=== PATIENT | male | born 1950 | race African-American/Black ===

== ENCOUNTER 2017-03-04 23:42 | Observation (INO) | payer SELFPAY ==
[2017-03-05 01:18] LABS: Troponin I Less than 0.010 ng/mL (< 0.028)
[2017-03-05 02:31] LABS: Troponin I Less than 0.010 ng/mL (< 0.028)
[2017-03-05] MEDS ORDERED: Sodium Chloride 0.9% 1,000 ML IV SCH ×2 (02:43→06:30)
[2017-03-05 02:48] VITALS: BMI 23.1
[2017-03-05 05:23] LABS: Troponin I Less than 0.010 ng/mL (< 0.028)
--- NOTE | 2017-03-05 05:36 | PDOC.EVN ---
Event Note - Event Note Event Note: [id number] H&P Dictated 1. Fatigue + Myalgias 2. LEXX Over CKD stage 3 3. H/O GERD 4. H/O BPH Plan: see orders
--- NOTE | 2017-03-05 06:20 | HP ---
CHIEF COMPLAINT: Diffuse body aches, fatigue. HISTORY OF PRESENT ILLNESS: The patient is a 66-year-old old male with past medical history of BPH, chronic kidney disease stage 3, kidney cancer and gastroesophageal reflux disease, came to the ER b ecause of diffuse bodyaches and fatigue. The patient said he woke up yesterday morning and started feeling tired and bodyaches. Denies any headache, denies any chest pain, denies any trouble breathi ng, denies any nausea, denies any vomiting, denies any dizziness, denies any lightheadedness. Denie s any cough, denies sputum production, denies any fever, denies any chills, myalgias persisted, extr roscoe fatigue so the patient was seen in the outside ER. From the outside ER the patient was transfer red here. PAST MEDICAL HISTORY: BHP, CKD stage 3, kidney cancer and gastroesophageal reflux disease. PAST SURGICAL HISTORY: Right nephrectomy. SOCIAL HISTORY: Denies smoking, denies alcohol, denies any drugs. MEDICATIONS: Reviewed. FAMILY HISTORY: Denies any heart problems. REVIEW OF SYSTEMS: CONSTITUTIONAL: Positive for headache, positive for myalgias. EYES: Denies vision problems. Denies hearing loss. Denies any neck pain. CARDIOVASCULAR: Denies any chest pain, denies any palpations. RESPIRATORY: Denies any cough, denies production. GASTROINTESTINAL: Denies nausea, denies vomiting. MUSCULOSKELETAL: Positive for diffuse joint pain. INTEGUMENTARY: Denies any rash. CRANIAL NERVE SYSTEM: Denies syncope, denies lightheadedness. PSYCHIATRIC: Denies anxiety. All other review of systems are reviewed and are negative. PHYSICAL EXAMINATION: CONSTITUTIONAL/VITAL SIGNS: At the time of H\T\P performed, blood pressure 116/73, heart rate 80, r espiratory rate 22, pulse ox 99%. GENERAL: Patient appears comfortable. HEENT: Pupils equal, round, and reactive. ENT patent. Nose normal. Ears normal. Teeth intact. Tongue is moist. NECK: Supple, no JVD. CARDIOVASCULAR SYSTEM: S1 and S2 present and regular rate and rhythm. No murmurs, no rubs, no arreaga ps. RESPIRATORY SYSTEM: No wheezing, no rhonchi. Breath sounds bilaterally. ABDOMEN: Soft, nontender, no guarding, no organomegaly, no masses felt. MUSCULOSKELETAL: No edema. INTEGUMENTARY: No rashes seen. PSYCHIATRIC: Mood is appropriate at this time. LABORATORY DATA: At the time of H\T\P performed; troponins negative x3. BMP showed sodium 136, pot assium 4.4, chloride 105, CO2 of 21, BUN 37, creatinine 1.3, baseline creatinine 1.7, calcium 9.6. AST 40, ALT 27. UA, trace blood seen. Nitrite negative. White count of 9.6, hemoglobin 13.1, plat elet count is 232. ASSESSMENT AND PLAN: The patient is 66 years old male. 1. Fatigue plus myalgias. Plan to check flu test. Plan to monitor the patient closely. 2. Abnormal EKG. EKG showed Q-waves in lead 3 and AVF, will check 2D echo, cardiac enzymes are neg ative. We will check 2D echo and if the echo shows wall motion abnormality then we will consult Car diology. 3. History of benign prostatic hypertrophy. Continue home medication. 4. Acute kidney injury with chronic kidney disease stage 3 to 4. Creatinine is slightly elevated. Continue IV hydration and repeat basic metabolic panel in a.m. 5. Gastroesophageal reflux disease. Continue proton-pump inhibitor. The case was discussed in detail with the patient.
[2017-03-05] MEDS ORDERED: Acetaminophen 325 MG TAB PO PRN (06:21)
[2017-03-05] MEDS ORDERED: Ondansetron HCl/PF 4 MG/2 ML Vial IVP PRN (06:21)
[2017-03-05] MEDS ORDERED: Labetalol HCl 100 MG TAB PO SCH (09:00)
[2017-03-05] MEDS: Heparin 5,000 UNITS/ML VIAL SC SCH ×2 (09:09→16:11)
[2017-03-05 09:23] LABS: Bilirubin Negative (Negative); Blood, Urine Negative (Negative); Glucose, Urine (Dipstick) Negative (Negative); Ketone, Urine Negative (Negative); Nitrite Negative (Negative); Protein, Urine (Dipstick) Negative (Neg-Trace); Urobilinogen 0.2 mg/dL (0.2-1.0)
[2017-03-05 09:27] LABS: Bacteria/HPF None Seen HPF (None Seen); Hyaline Casts/LPF 0-3 HYALINE CAST LPF (0-3 Hyaline)
[2017-03-05 10:38] LABS: RBC/HPF 0-3 HPF (0-3)
[2017-03-05] MEDS ORDERED: Regadenoson 0.4 MG/5 ML SYRINGE ONE (13:22)
[2017-03-05 15:24] VITALS: BP 177/83; TEMP 98.3
--- NOTE | 2017-03-05 16:57 | NM ---
MYOCARDIAL PERFUSION STUDY 03/05/17 HISTORY: Chest pain. RADIOPHARMACEUTICAL: 27.5 millicuries of technetium 99m Sestamibi, IV at stress and 9 millicuries technetium 99m Sestamib i, IV at rest. MEDICATIONS: 0.4 mg of Lexiscan, IV. FINDINGS: There is no significant reversible defect seen between the stress and resting acquisitions. Quantita tive analysis also shows no significant reversible defect. Gaited images show normal ventricular wal l motion and wall thickening. The calculated left ventricular ejection fraction is 66%. IMPRESSION: 1. Normal myocardial perfusion scan without evidence of a reversible defect seen to suggest isc hemia. 2. Normal LVEF of 66%. POS: [facility]
--- NOTE | 2017-03-05 20:22 | DIS ---
DATE OF ADMISSION: March 05, 2017 DATE OF DISCHARGE: March 05, 2017 DISCHARGE DIAGNOSES: 1. Generalized weakness and body aches. 2. Acute kidney injury on chronic kidney disease, stage 3. 3. History of renal cell carcinoma. 4. Gastroesophageal reflux disease. 5. Hypertension. CONSULTATIONS: None. PERTINENT LAB AND X-RAY FINDINGS: Creatinine 1.93 with estimated GFR of 43, calcium 9.6, AST 40, AL T of 27, alkaline phosphatase 109, total bilirubin 0.7. Troponin I negative x3. Albumin 3.9, total cholesterol 133, triglycerides 53, HDL 41, LDL 81. CBC showed a white blood cell count of 9.6, hem oglobin 13, hematocrit 42, platelet count 232 with 67% neutrophils. Portable chest x-ray dated 02/14, showed no acute cardiopulmonary process. Cardiolite stress test dated 03/05/2017, showed no evidence for reversible or fixed ischemia with calculated ejection fraction of 66%. HOSPITAL COURSE: The patient was observed on the telemetry unit after initially presenting with gen eral fatigue, body aches, and acute kidney injury in the context of known chronic kidney disease, st age 5. The patient was initiated on low volume IV fluid hydration as well as undergoing metabolic s creening showing serial troponins negative x3. The patient's symptomatology and presentation were s omewhat unclear, at which point the patient underwent cardiac stress testing to rule out underlying ischemia as the culprit for presentation. The patient proceeded to Cardiolite stress testing showin g no evidence of reversible or fixed ischemia with calculated ejection fraction of 66%. No specific etiology identified other than possible viral type insult. Telemetry monitoring showed a sinus mec hanism without evidence of acute arrhythmia or dysrhythmia. The patient overall remained clinically stable throughout the hospital course and ready for discharge on 03/05/2017. DISCHARGE MEDICATIONS: 1. Labetalol 100 mg one tab p.o. daily. 2. Omeprazole 40 mg one tab p.o. daily. FOLLOWUP: The patient will follow up with his primary care provider, Dr. Compa Villalpando within 7 day s of discharge. CONDITION ON DISCHARGE: Stable. ACTIVITY: Ad-raj. DIET: Heart healthy. CODE STATUS: Full. DISPOSITION: Home on 03/05/2017.
== END 2017-03-05 17:44 | disposition home or self-care (01) ==
LOC: ERS 23:42 → 2SW 03-05 01:30
PROVIDERS: ADMIT Internal Medicine; ATTEND Internal Medicine
DX: R53.1 Weakness (principal); R53.83 Other fatigue; I12.9 Hypertensive chronic kidney disease with stage 1 through stage 4 chronic kidney disease, or unspecified chronic kidney disease; N18.3 Chronic kidney disease, stage 3 (moderate); N17.9 Acute kidney failure, unspecified; K21.9 Gastro-esophageal reflux disease without esophagitis; Z79.899 Other long term (current) drug therapy; Z90.5 Acquired absence of kidney; Z85.528 Personal history of other malignant neoplasm of kidney; Z87.891 Personal history of nicotine dependence
CPT/HCPCS: 36415; 78452; 80061; 81001; 82553; 84484; 93005; 93017; 93306; 96360; 96361; A9500; G0378; J1644; J2785

== ENCOUNTER 2017-04-10 14:40 | Emergency (ER) | payer SELFPAY ==
[2017-04-10 15:42] LABS: #Eosinphils 0.2 thou/uL (0.0-0.7); #Monocytes 0.9 thou/uL (0.11-0.59); #Neutrophils 5.6 thou/uL (1.40-6.50); %Basophils 0.4 % (0.0-1.0); %Eosinophils 1.8 % (0.0-10.0); %Lymphocytes 22.9 % (21.0-51.0); %Monocytes 10.4 % (0.0-10.0); Hematocrit 41.3 % (42.0-52.0); Mean Platelet Volume 8.2 fL (7.4-10.4); Red Blood Cell (RBC) Count 4.36 mill/uL (4.70-6.10); White Blood Cell (WBC) Count 8.6 thou/uL (4.8-10.8)
[2017-04-10 15:47] LABS: Prothrombin Time 14.6 SEC (12.0-14.7)
[2017-04-10 15:54] LABS: Bilirubin Negative (Negative); Blood, Urine Negative (Negative); Glucose, Urine (Dipstick) Negative (Negative); Ketone, Urine Negative (Negative); Nitrite Negative (Negative); Protein, Urine (Dipstick) Negative (Neg-Trace)
[2017-04-10 16:05] LABS: ALT (SGPT) 31 U/L (8-55); AST (SGOT) 39 U/L (5-34); Alkaline Phosphatase 122 U/L (40-150); Anion Gap 13 mmol/L (10-20); BUN (Urea Nitrogen) 26 mg/dL (8.4-25.7); Bilirubin, Total 0.4 mg/dL (0.2-1.2); Calc. Creatinine Clearance 0 mL/min (70-130); Calcium 9.7 mg/dL (7.8-10.44); Carbon Dioxide 23 mmol/L (23-31); Chloride 112 mmol/L (98-107); Estimated GFR-MDRD 50; Globulin 5.2 g/dL (2.4-3.5); Protein, Total 8.7 g/dL (5.8-8.1)
[2017-04-10 16:09] LABS: Troponin I 0.012 ng/mL (< 0.028)
--- NOTE | 2017-04-10 16:12 | RAD ---
PA AND LATERAL CHEST X-RAY 04/10/17 HISTORY: Decreased appetite and feeling bad for one month. History of renal mass with right nephrectomy one ye ar ago. COMPARISON: 03/04/17. FINDINGS: The cardiac silhouette and pulmonary vasculature are within normal limits. Linear scarring is again s een in the anterior aspect of the left upper lobe. There is a faint nodular density seen at the left lung base. This could be related to superimposition of structures and was not present on the prior st udy. The lungs were otherwise clear. There is a nodular density seen within the right hilar region. T his could be related to mass or lymphadenopathy. Degenerative changes are seen in the spine. There is slight wedge shaped deformities of thoracic vertebral bodies which is unchanged from the prior exam and some of this may be physiologic and related to degenerative change or secondary to remote injury. Surgical clips overlie the upper abdomen. IMPRESSION: 1. Nodular density right hilar region. Further evaluation with CT scan is recommended. 2. Faint subcentimeter nodular density at the left lung base. This is probably related to superi mposition of structures, but this can also be evaluated on CT exam. 3. Scarring in the left upper lobe. POS: [facility]
== END 2017-04-10 16:35 | disposition home or self-care (01) ==
LOC: ERS 14:40
DX: R63.0 Anorexia (principal); K21.9 Gastro-esophageal reflux disease without esophagitis; I10 Essential (primary) hypertension; E78.5 Hyperlipidemia, unspecified
CPT/HCPCS: 36415; 71020; 80053; 81003; 82553; 84484; 85025; 85610; 85730; 93005; 93010

== ENCOUNTER 2017-04-19 00:49 | Inpatient (IN) | payer SELFPAY ==
[2017-04-19] MEDS ORDERED: Ondansetron HCl/PF 4 MG/2 ML Vial IVP PRN (03:39)
[2017-04-19] MEDS ORDERED: Ondansetron ODT 4 MG TAB SL PRN (03:39)
[2017-04-19] MEDS ORDERED: Sodium Chloride 0.9% 1,000 ML IV SCH (03:39)
[2017-04-19 05:24] VITALS: BMI 18.3
--- NOTE | 2017-04-19 10:39 | CON ---
DATE OF CONSULTATION: 04/19/2017 HISTORY OF PRESENT ILLNESS: The patient is a 66-year-old -Citizen Of [place] male with a history of renal carcinoma, status post right radical nephrectomy in 2016 at [facility], who presented to the emergency department in [facility] for progressive neurologic decline as well as increasing right leg pain. He was evaluated with a CT of the head, which was notable for multiple intracranial lesions consistent with metastatic disease. There was a lesion at the third ventricle with associated hydrocephalus. The patient was also found to have multiple osteolytic metastatic lesions to the right pubic body, right inferior pubic rami, which appeared to be causing nondisplaced right pubic body fracture. The patient was admitted to the medical service for further evaluation of these issues and Neurosurgical service was consulted for new intracranial lesions. PAST MEDICAL HISTORY: Notable for renal cell carcinoma, status post right nephrectomy in 06/2015; IVC thrombosis. PAST SURGICAL HISTORY: Right nephrectomy in 2015. SOCIAL HISTORY: The patient does not smoke, drink, or use any drugs. ALLERGIES: He has no known drug allergies. PHYSICAL EXAMINATION: CONSTITUTIONAL: The patient is somnolent. Does arouse with stimulation. HEENT: Normocephalic, atraumatic. Eyes PERRLA. Extraocular movements are intact. Sclerae are white. ENT: Oral mucosa is pink, moist, and intact. He has a normal voice. NECK: Nontender to palpation. Free active range of motion. No meningismus or nuchal rigidity. RESPIRATORY: The patient is breathing comfortably. No evidence of respiratory distress. CARDIOVASCULAR: Regular rate and rhythm. BACK: Nontender to palpation. MUSCULOSKELETAL: Good muscle tone to bilateral upper or lower extremities. Peripheral pulses are intact. NEUROLOGIC: He is drowsy. He awakes to stimulation. He will tell me his name , but is otherwise disoriented to place, time, or situation. He is moving all fours. He is following some commands. ASSESSMENT: Renal cell carcinoma with multiple metastatic lesions, hydrocephalus. PLAN: The patient is currently admitted to the medicine service for further evaluation of his renal cell carcinoma as well as metastatic disease to the pelvis and the brain. We will recommend Oncology involvement for further assistance in management. Depending on prognosis, the patient may be more likely to consider hospice management, although this conversation has not been had with the patient or the family. If aggressive management was entertained we may consider BACK TENDER CYLINDER shunt for hydrocephalus. We will continue to follow along and assist in any way that is needed. We will hold off on any acute neurosurgical intervention at this time. Please reach out to the Neurosurgical service for additional questions or concerns. VADIM
[2017-04-19] MEDS ORDERED: HYDROcodone/Acetaminophen 10/325 mg Tablet PO PRN (11:44)
[2017-04-19] MEDS ORDERED: HYDROcodone/Acetaminophen 5/325 mg Tablet PO PRN (11:44)
[2017-04-19] MEDS ORDERED: Ondansetron ODT 4 MG TAB PO PRN (11:44)
[2017-04-19] MEDS ORDERED: hydrALAZINE 20 MG/ML VIAL SLOW IVP PRN (11:44)
[2017-04-19] MEDS: Dexamethasone 4 mg/ml Vial SLOW IVP SCH ×2 (12:20→18:56)
[2017-04-19] MEDS ORDERED: Lorazepam 2 MG/ML VIAL SLOW IVP SCH (13:30)
--- NOTE | 2017-04-19 13:41 | RAD ---
AP VIEW OF THE PELVIS: INDICATION: Pubic rami fracture. COMPARISON: Prior radiographs of the right hip dated 04/18/17 from [facility]. FINDINGS: There is prominent osteolytic lesion again seen involving the right inferior pubic ramus and right in ferior pubic body. There is a vertically oriented fracture seen on the comparison radiograph involvi ng the right pubic body that is not as well detailed on the current exam. Mild degenerative change i s seen in both hips. IMPRESSION: Osteolytic metastatic lesion to the right pubic body and right inferior pubic ramus with a suspected nondisplaced right pubic body pathologic fracture. POS: [facility]
--- NOTE | 2017-04-19 16:58 | CON ---
DATE OF CONSULTATION: 04/19/2017 REQUESTING PHYSICIAN: Dr. Polo. BRIEF HISTORY OF PRESENT ILLNESS: Patient is a 66-year-old -[place] gentleman who was examin ed in his hospital bed with his at bedside. The patient has a history of renal cell carcinoma a nd is status post radical nephrectomy in 2005 at [facility]. The patient was in his usual state o f health up until this recent admission. He presented to the emergency room in [place] for increasing right groin pain. He was evaluated with CT scan of head as well as x-rays of the hip and these are remarkable for intracranial lesions consistent with metastatic disease as well as osteolytic metastat ic lesions of the right pubis and right inferior pubic rami. Given these pelvis findings, orthopedic consultation requested. PAST MEDICAL HISTORY: Remarkable for renal cell carcinoma. PAST SURGICAL HISTORY: Nephrectomy. SOCIAL HISTORY: He is a nonsmoker, does not drink alcohol. Denies recreational drug use. ALLERGIES: None known. REVIEW OF SYSTEMS: No recent fevers, chills or sweats. Denies chest pain or shortness of breath. N o numbness or tingling in lower extremity. PHYSICAL EXAMINATION: VITAL SIGNS: Temperature 97.5, heart rate of 68, respiratory rate is 16, and blood pressure of 145/8 6. HEENT: Atraumatic, normocephalic. HEART: Regular rate and rhythm. LUNGS: Clear to auscultation. He is in no acute distress. PELVIS: Pelvis is stable to compression with no significant pain in the groin. He does have pain to direct palpation on the right side of the rami. EXTREMITIES: Leg lengths are equal. He has minimal discomfort with log rolling of the thigh and he has an atraumatic knee, ankle and foot. X-RAYS: AP pelvis x-ray obtained at [place] as well as hip films from [place] are remarkable for a large lytic lesion at the inferior rami and just adjacent to the body of the pubis. He was also fou nd to have a lesion within the pubic body and what appears to be a fracture at least a vertical line seen superiorly at the pubis, but without displacement. The acetabulum does not appear to be effecti ve in both from femoral neck and heads appear to be disease free. ASSESSMENT: A 66-year-old gentleman with a history of renal cell carcinoma, now with apparent metast atic disease both intracranially as well as to the right inferior rami and right pubic body. Patient does have a stable pelvis. PLAN: At this time, he can be weightbearing as tolerated. I would recommend a walker as needed for pain. If there was concern regarding the tumor in the pelvis, consideration for radiation treatment would be reasonable; however, there is no surgical lesion at this time. I had a thorough discussion with the patient's regarding this recommendation.
--- NOTE | 2017-04-19 20:56 | CON ---
DATE OF CONSULTATION: 04/19/2017 REASON FOR CONSULTATION: Mr. Denson is a 66-year-old gentleman who has been diagnosed with brain metas tasis from renal cell carcinoma. I was asked to see him to discuss his treatment options. HISTORY OF PRESENT ILLNESS: Mr. Denson is unable to give a history. This history was all gathered by talking with his . He was apparently diagnosed with a right renal cell carcinoma in 2015. At th at time, he underwent a right radical nephrectomy in [place]. Since then, he has been followed and ap parently has been without evidence of disease. However, over the past week, he has had a significant decline in performance status as well as mental status changes. By Wednesday, he was really unable to get out of the bed and began sleeping most of the time. He was taken to the emergency room where he underwent a CT scan of the head. This showed numerous hypodense lesions consistent with brain metast asis. The largest appeared to be obstructing the third ventricle and there was some hydrocephalus. Apparently, he has not been having headaches. However, he has been having some pain in his stomach a nd on his left side. He has not been eating and drinking very much lately and has had at least a 60- pound weight loss. Again, over the past several days, he has had progressive somnolence. He was adm itted to the hospital yesterday and has begun on dexamethasone. At this point, there has been very l ittle improvement. PAST MEDICAL HISTORY: 1. Renal cell carcinoma, status post right radical nephrectomy in 06/2015 as mentioned above. 2. Hypertension prior to a surgery, although he has not required medications recently. 3. Chronic renal insufficiency after his nephrectomy. 4. He reports no other medical problems. MEDICATIONS: Decadron and Pepcid. ALLERGIES: No known medical allergies. SOCIAL HISTORY: He does live in [place], [place] with his . He has not smoked cigarettes since . He does drink an occasional beer. He is retired. FAMILY HISTORY: His mother and father both had diabetes. He has had other family members with diabe brendon. He has had 2 nieces with breast cancer. There is no family history of renal cell carcinoma. REVIEW OF SYSTEMS: Unable to be obtained from the patient because he is very somnolent. PHYSICAL EXAMINATION: VITAL SIGNS: Height 64 inches, weight 150 pounds, blood pressure is 145/86, pulse is 68, respiration s are 16, temperature is 97.5, O2 saturation is 97%. GENERAL: The patient is very somnolent and confined to the bed. He does open his eyes at least part ially, follows some commands, but typically goes quickly back to sleep. Karnofsky performance status is 30%. EYES: Pupils are equal, round, and reactive to light. Extraocular movements are intact. ENT: Oral cavity and oropharynx normal without lesion or erythema. Palate elevates symmetrically. NECK: Supple without cervical or supraclavicular adenopathy. No thyromegaly. Larynx is midline. LUNGS: Breathing nonlabored. Clear to auscultation and percussion. CARDIOVASCULAR: Heart, regular rate and rhythm without murmur. No lower extremity edema. ABDOMEN: Soft, nontender, nondistended without mass or hepatosplenomegaly. Liver percussed to a nor mal size. LYMPHATIC: No axillary or inguinal adenopathy. NEUROLOGIC: Again, the patient is very somnolent. He does open his eyes for a period of time, but d oes not seem to follow commands completely. He does not seem to be oriented. Motor strength is basi nishant unable to be checked as he has difficulty following commands. He does move all 4 extremities. He is confined to the bed and gait was not tested. RADIOLOGIC: CT scan of the head was personally reviewed. Again, he has numerous hypodense lesions c onsistent with brain metastases. The largest is 2.7 x 2.5 cm lesion seen within the third ventricle that is causing obstruction of the third ventricle and hydrocephalus. He has numerous other lesions. A plain film x-ray of the right hip shows a lytic lesion involving the right pubic body and inferio r pubic ramus consistent with bone metastasis. LABORATORY DATA: Creatinine was 1.54 with a GFR of 55. Albumin was 3.6. CBC revealed a white blood count of 10,200 with hemoglobin of 14.7, hematocrit of 47.0, platelet count of 209,000. ASSESSMENT: Mr. Denson is a 66-year-old gentleman with an initial right renal cell carcinoma. This wa s surgically treated in [place] in 2016. I do not have those records available. Initial stage is unk nown to me. He now appears to have brain and bone metastases. He has had a substantial decline in p erformance status, which is not improved to date with dexamethasone. PLAN: I had a long discussion with Mr. Denson's regarding his diagnosis, prognosis, prognostic fa ctors, and treatment options. His survival is quite poor with his poor performance status. I explai david the likely diagnosis of being metastatic renal cell carcinoma to the brain. He does have obstruc tive hydrocephalus. He has been seen by Neurosurgery, who was not inclined towards shunt placement, although this could be performed if aggressive intervention was felt to be warranted. Given his poor prognosis and the fact that he is confined to the bed, I think that aggressive treatment is not zoë anted in this situation. I think that he would likely get very little benefit from aggressive treatm ent. Of course, this could change if he responds to the steroids further and does become more awake and able to get out of bed and not have confusion. We could then consider whether aggressive treatme nt would be warranted. However, with his poor performance status and the fact that he is confined to the bed, this would not be my expectation that this is going to occur. I think radiation therapy wo uld be of little benefit with such a poor performance status. I think he is likely best managed with hospice care. This was all discussed with the in depth. He is also being seen by palliative c are. I think if he has minimal improvement in the next 24 hours, then hospice would be the best plan of action. If he does improve, then I would be happy to reevaluate the patient to discuss whether r adiation therapy would be warranted. Please let me know if that occurs or if there are any further q uestions from the family about his situation or radiation therapy. Thank you for this interesting consultation.
[2017-04-20 04:44] LABS: #Lymphocytes 1.1 thou/uL (1.20-3.40); #Monocytes 0.5 thou/uL (0.11-0.59); #Neutrophils 7.4 thou/uL (1.40-6.50); %Eosinophils 0.2 % (0.0-10.0); %Lymphocytes 11.9 % (21.0-51.0); %Monocytes 5.6 % (0.0-10.0); Hematocrit 43.3 % (42.0-52.0); Red Blood Cell (RBC) Count 4.58 mill/uL (4.70-6.10)
[2017-04-20 05:04] LABS: Anion Gap 15 mmol/L (10-20); BUN (Urea Nitrogen) 41 mg/dL (8.4-25.7); Calc. Creatinine Clearance 57 mL/min (70-130); Calcium 10.1 mg/dL (7.8-10.44); Carbon Dioxide 19 mmol/L (23-31); Chloride 110 mmol/L (98-107); Estimated GFR-MDRD 70
[2017-04-20] MEDS: Dexamethasone 4 mg/ml Vial SLOW IVP SCH ×3 (07:59→18:51)
[2017-04-20] MEDS: Famotidine 20 MG TAB PO SCH ×3 (07:59→21:38)
--- NOTE | 2017-04-20 08:59 | HP ---
DATE OF ADMISSION: 04/19/2017 TIME OF SERVICE: 0805 CHIEF COMPLAINT: Right hip pain. HISTORY OF PRESENT ILLNESS: Mr. Denson is a pleasant 66-year-old -N[place]ien male with history of renal cell carcinoma, status post right nephrectomy in 08/2015 at [facility]. He presents to the [place] ER for acute onset of right hip pain. The patient states he was up walking and had acute o nset of right hip pain, made it difficult to stand. He denies any falling. No headache, no change i n his vision. No fevers or chills. No nausea, vomiting, diarrhea, constipation or chest pain or dif ficulty breathing. The pain was intense, so presented to the Emergency Department of [place] for evaluation, where he h ad a right hip film that showed a right inferior ramus osteolytic lesion and a right pubic body fract ure. The patient also had some drooping of his left eyelid and decreased mental status. Brain CT sc an was done that showed intracranial metastatic disease with multiple lesions, one in the right aspec t of the third ventricle causing incomplete obstruction and mild hydronephrosis. He was subsequently transferred here for further workup and evaluation. At present, the patient is sleepy, but arousable, answers questions appropriately. Denies any other current complaints. PAST MEDICAL HISTORY: 1. GERD 2. Hyperlipidemia. 3. Essential hypertension. 4. Right renal cell carcinoma. PAST SURGICAL HISTORY: Right nephrectomy in 08/2015. He was told that was curative. HOME MEDICATIONS: None. ALLERGIES: NKDA. FAMILY HISTORY: Negative for clotting or bleeding disorder. No immune dysfunction, no history of re nal cell cancer. SOCIAL HISTORY: Negative for habits x3. Lives alone in [place]. REVIEW OF SYSTEMS: Ten-point review of systems was performed and negative for other systems except a s stated as per HPI. PHYSICAL EXAMINATION: VITAL SIGNS: Temperature 97.9, pulse 80, blood pressure 133/71, respiratory rate 18, satting 100% on room air. GENERAL: He is awake. He is alert. He is oriented x3, does appear somnolent, but is easily arousab le. HEENT: Normocephalic, atraumatic. Pupils are equal, reactive bilaterally, he has some slight left p tosis, seemed to improve as our conversation continued. The mucous membranes are moist without visib le lesions, no thrush. NECK: Supple, with no lymphadenopathy, no JVD, no thyromegaly. Has normal carotid upstrokes without bruits. LUNGS: Clear to auscultation bilaterally without wheeze, rales or rhonchi. He has adequate air move ment with symmetrical chest excursion. There is no prolonged expiratory phase. CARDIOVASCULAR: Regular, normal rate. He has normal S1, S2. I do not appreciate murmurs. ABDOMEN: Soft, is nontender, nondistended, no masses, no organomegaly. EXTREMITIES: No cyanosis, no clubbing, and no edema. MUSCULOSKELETAL: Normal to inspection. He has tenderness with active and passive motion of the righ t hip. Left is normal. He does have some tenderness to palpation over the right hip area. SKIN: Warm, moist, and well perfused without any rashes or lesions. NEUROLOGIC: Cranial nerves II-XII grossly intact. No focal deficits other than the left lid ptosis. LABORATORY EVALUATION: CMP showed that a creatinine of 1.54, potassium normal at 4.5, magnesium a li ttle bit low at 1.5. Liver functions are fairly normal. White blood cell count is 10.2, hemoglobin of 14.7, hematocrit of 47, and platelet count is 200,000. CK-MB is normal at 1.2, troponin I was normal at 0.019 and INR is 1.1. Urinalysis showed 1+ bacteria . No white blood cells, 7-10 red cells and moderate blood. RADIOGRAPHIC STUDIES: Hip film as above. Chest x-ray with left mid lung scar and right side appeare d clear and brain CT showed intracranial metastatic disease as above. ASSESSMENT AND PLAN: 1. Pathologic fracture of the right pubic body. Orthopedics was consulted. Likely noninterventiona l. The patient would likely be weightbearing as tolerated. PT/OT to evaluate. 2. Metastatic disease, likely renal cell carcinoma: Overall poor prognosis. Due to the obstruction of the third ventricle, we will ask for Radiation Oncology, Oncology, and Neurosurgery to evaluate. I doubt there is any surgical to be done with his advanced disease, but perhaps he could benefit fro m some radiation treatments to shrink and minimize his hydrocephalus. We will ask Oncology comment o n prognosis. 3. Hypertension, essential. Not on any medications and currently stable. Continue to watch. 4. History of renal cell carcinoma: The patient had a nephrectomy year and a half ago, no followup to his knowledge. I do not have records from that visit. We will follow up on Oncology recommendati ons.
--- NOTE | 2017-04-20 12:20 | PDOC.PN ---
- Subjective Encounter Start Date: 04/20/17 Encounter Start Time: 10:40 Pt sen, at bedside, plans and findings relayed. Seen yesterday by RadOnc - no aggressive RadRx recommended Seen by ortho - WBAt, no operative intervention. seen by NeuroSurg: no operative intervention, shunt could be placed if needed. awaiting formal opinion regarding prognosis form Oncology Palliative care saw, stated he still wanted everything done. After i left the room, CM in, then reported decided to get hospice involved. NO f/C, no n/V/D/C, no EVANS, no Cough or sputum, no SOB 10 point ROS performed and neg for all systems except as above - Objective MAR Reviewed: Yes Vital Signs & Weight: Vital Signs (12 hours) Temp Pulse Resp BP Pulse Ox 04/20/17 08:33 98.1 F 57 L 16 122/71 98 04/20/17 04:00 98.3 F 59 L 16 119/62 98 Weight Admit Weight 150 lb 5.68 oz Weight 150 lb 5.68 oz I&O: 04/19/17 04/20/17 04/21/17 06:59 06:59 06:59 Intake Total 225 Balance 225 Result Diagrams: 04/20/17 03:50 04/20/17 03:50 Radiology Reviewed by me: Yes EKG Reviewed by me: Yes Phys Exam - Physical Examination Constitutional: NAD HEENT: PERRLA, moist MMs, sclera anicteric, oral pharynx no lesions Neck: no nodes, no JVD, supple, full ROM Respiratory: no wheezing, no rales, no rhonchi, clear to auscultation bilateral Cardiovascular: RRR, no significant murmur, no rub Gastrointestinal: soft, non-tender, no distention, positive bowel sounds Musculoskeletal: no edema, pulses present Neurological: non-focal, normal sensation, moves all 4 limbs Lymphatic: no nodes Psychiatric: normal affect, A&O x 3 Skin: no rash, normal turgor, cap refill <2 seconds Dx/Plan (1) Brain metastases Code(s): C79.31 - SECONDARY MALIGNANT NEOPLASM OF BRAIN Status: Acute (2) Pathologic pelvic fracture Code(s): M84.454A - PATHOLOGICAL FRACTURE, PELVIS, INIT ENCNTR FOR FRACTURE Status: Acute (3) Bone metastasis Code(s): C79.51 - SECONDARY MALIGNANT NEOPLASM OF BONE Status: Acute (4) CKD (chronic kidney disease) stage 2, GFR 60-89 ml/min Code(s): N18.2 - CHRONIC KIDNEY DISEASE, STAGE 2 (MILD) Status: Chronic - Plan cont current plan of care, PT/OT, 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 Hospice consult Await oncology visit for prognosis Home soonwith hospice services if agrees. WBAT, no surgeries planned.
--- NOTE | 2017-04-20 15:53 | CON ---
DATE OF CONSULTATION: 04/20/2017 REASON FOR CONSULTATION: Renal cell carcinoma. HISTORY OF PRESENT ILLNESS: Mr. Denson is a 66-year-old -[place] male who was diagnosed with right renal cell carcinoma in 2016. He underwent a right radical nephrectomy at [facility] in [place]. He was followed by an urologist at [facility] and oncologist at [facility] in [place]. He did not receive any chemo or radiation. Over the past week, he had a decline in performance status and was sleeping all the time. He became confused. His family called EMS and he presented to our emergency room. CT scan showed numerous hypodense lesions consistent with brain metastasis. He had a pelvic x-ray which showed osteolytic metastatic lesion in the right pubic body and right inferior pubic ramus with a nondisplaced right pubic body pathological fracture. Orthopedic surgery was consulted and feels there is no surgical intervention needed. Dr. Santos was consulted and we were asked to see the patient for our recommendations. PAST MEDICAL HISTORY: 1. Renal cell carcinoma, status post right nephrectomy in 2016. 2. Hypertension. 3. Chronic renal insufficiency. ALLERGIES: No known drug allergies. HOME MEDICATIONS: 1. Labetalol 200 mg daily. 2. Prednisone daily. 3. Flomax 0.4 mg daily. FAMILY HISTORY: Positive for 2 nieces with breast cancer. No family history of renal cell carcinoma. SOCIAL HISTORY: He is , lives with his in [place]. No alcohol, tobacco or illicit drug use. REVIEW OF SYSTEMS: Unable to obtain secondary to altered mental status, although denies any pain. PHYSICAL EXAMINATION: VITAL SIGNS: Temperature is 97.8, pulse is 60, respiratory rate 15, BP is 128/ 77. He is saturating 94% on room air. GENERAL: A well-developed, well-nourished male in no acute distress. HEENT: Normocephalic and atraumatic. Pupils are equal and reactive to light. NECK: Supple. CARDIOVASCULAR: Regular rate and rhythm. LUNGS: Clear. ABDOMEN: Soft and nontender. Bowel sounds are positive. EXTREMITIES: There is no clubbing, cyanosis or edema. SKIN: No rash. HEMATOLOGICAL: No petechia or purpura. NEUROLOGICAL: The patient is awake and follows commands. He is oriented to person only and he does move all 4 extremities. PERTINENT LABORATORY AND X-RAYS: Current WBCs are 9.0, hemoglobin 14.1, hematocrit 43.3, platelet count 197,000, 83% neutrophils and 12% lymphocytes. Sodium 139, potassium 4.8, chloride 110, CO2 is 19, BUN is 41, creatinine 1.26 and calcium 10.1. Radiology per HPI. ASSESSMENT AND PLAN: Metastatic renal cell carcinoma with brain metastasis and pathological right pubic body fracture. DISCUSSION: The patient has a very poor prognosis given the fact that he remains confused despite steroids and is confined to the bed. There is no neurological or orthopedic intervention planned that would be beneficial to the patient. Dr. Santos feels that he is also a poor candidate for radiation therapy. I feel that he would do very poorly with chemo. I have discussed in detail with the who feels that taking him home to be with family is in his best interest, I would agree. They have notified [facility] who will see him this afternoon. VADIM
[2017-04-20] MEDS: Acetaminophen 325 MG TAB PO PRN (18:52)
[2017-04-21] MEDS: Dexamethasone 4 mg/ml Vial SLOW IVP SCH ×2 (03:27→11:39)
[2017-04-21] MEDS: Famotidine 20 MG TAB PO SCH (09:26)
[2017-04-21 11:52] VITALS: BP 118/67; TEMP 98.4
[2017-04-21] MEDS: Acetaminophen 325 MG TAB PO PRN (14:02)
== END 2017-04-21 15:00 | disposition hospice, home (50) | DRG 543 ==
LOC: ERS 00:49 → SJJU 01:40
PROVIDERS: ADMIT Internal Medicine; ATTEND Internal Medicine
DX: M84.550A Pathological fracture in neoplastic disease, pelvis, initial encounter for fracture (principal); C79.31 Secondary malignant neoplasm of brain; C79.51 Secondary malignant neoplasm of bone; G91.4 Hydrocephalus in diseases classified elsewhere; Z85.528 Personal history of other malignant neoplasm of kidney; Z90.5 Acquired absence of kidney; K21.9 Gastro-esophageal reflux disease without esophagitis; E78.5 Hyperlipidemia, unspecified; Z87.891 Personal history of nicotine dependence; Z74.01 Bed confinement status; Z51.5 Encounter for palliative care; I12.9 Hypertensive chronic kidney disease with stage 1 through stage 4 chronic kidney disease, or unspecified chronic kidney disease; N18.2 Chronic kidney disease, stage 2 (mild)
CPT/HCPCS: 36415; 72170; 80048; 85025; 93005; G8978-GP-CM; G8979-GP-CK; G8987-GO-CL; G8988-GO-CK; J1100; J2060